=== PATIENT | male | born 1955 ===

== ENCOUNTER 2018-09-17 06:14 | Observation (INO) | payer OTHER ==
[2018-09-17 06:26] VITALS: BMI 32.5
[2018-09-17] MEDS ORDERED: Vancomycin 1.5 GM in Sodium Chloride 0.9% 500 ML IVPB STA (06:29)
--- NOTE | 2018-09-17 06:39 | ED PDOC ---
HPI: Male Pain Time Seen by Provider: 09/17/18 06:17 Chief Complaint (Nursing): Male Genitourinary Chief Complaint (Provider): Male Genitourinary History Per: Patient History/Exam Limitations: no limitations Additional Complaint(s): 63 y/o male presents to the ED complaining of male genitourinary problem. Patient reports that he has difficulty with his penile implant and states that it is malfunctioning. Denies any pain, dysuria, fever, chill, abdominal pain. Past Medical History Reviewed: Historical Data, Nursing Documentation, Vital Signs Vital Signs: Last Vital Signs Temp 97.7 F 09/17/18 06:16 Pulse 58 L 09/17/18 06:16 Resp 17 09/17/18 06:16 BP 165/93 H 09/17/18 06:16 Pulse Ox 98 09/17/18 06:16 - Medical History PMH: No Chronic Diseases - Surgical History Surgical History: No Surg Hx - Family History Family History: States: Unknown Family Hx - Allergies Allergies/Adverse Reactions: Allergies Allergy/AdvReac Type Severity Reaction Status Date / Time No Known Allergies Allergy Verified 09/17/18 06:29 Review of Systems ROS Statement: Except As Marked, All Systems Reviewed And Found Negative Constitutional: Negative for: Fever, Chills Gastrointestinal: Negative for: Abdominal Pain Genitourinary Male: Negative for: Dysuria, Penile Pain Physical Exam - Reviewed Nursing Documentation Reviewed: Yes Vital Signs Reviewed: Yes - Physical Exam Appears: Positive for: Well, Non-toxic, No Acute Distress Head Exam: Positive for: ATRAUMATIC, NORMAL INSPECTION, NORMOCEPHALIC Skin: Positive for: Normal Color, Warm, DRY Eye Exam: Positive for: EOMI, Normal appearance, PERRL ENT: Positive for: Normal ENT Inspection Neck: Positive for: Normal, Painless ROM Cardiovascular/Chest: Positive for: Regular Rate, Rhythm. Negative for: Murmur Respiratory: Positive for: Normal Breath Sounds. Negative for: Respiratory Distress Gastrointestinal/Abdominal: Positive for: Normal Exam, Soft. Negative for: Tenderness Male Genital Exam: Positive for: normal genitalia (full erection; nontender). Negative for: epididymal tenderness, inguinal tenderness, scrotum tenderness (R), scrotum tenderness (L), testicular tenderness (R), testicular tenderness (L), urethral discharge, other (discoloration) Back: Positive for: Normal Inspection Extremity: Positive for: Normal ROM. Negative for: Pedal Edema, Deformity Neurologic/Psych: Positive for: Alert, Oriented. Negative for: Motor/Sensory Deficits - ECG O2 Sat by Pulse Oximetry: 98 (RA) Pulse Ox Interpretation: Normal Medical Decision Making Medical Decision Making: Time: 06:29 A/P: 63 y/o with malfunctioning penile implant. Discussed case with Dr. Nguyễn who states implant will likely need replacement and recommends antibiotics. Patient will be admitted. * Vancomycin 1.5gm Scribe Attestation: Documented by Diony Cardenas acting as a scribe for Danial Katz MD. Provider Scribe Attestation: All medical record entries made by the Scribe were at my direction and personally dictated by me. I have reviewed the chart and agree that the record accurately reflects my personal performance of the history, physical exam, medical decision making, and the department course for this patient. I have also personally directed, reviewed, and agree with the discharge instructions and disposition. Disposition - Clinical Impression Clinical Impression: Malfunction of penile prosthesis - Patient ED Disposition Is Patient to be Admitted: Yes - Disposition Disposition Time: 06:30 Condition: FAIR Forms: [employer] (Azeri)
[2018-09-17] MEDS ORDERED: Etomidate 20 mg/10ml Inj IV ONE (10:07)
[2018-09-17] MEDS ORDERED: Sevoflurane - Inhalation Anesthetic Liq (250 ml) ONE (10:09)
[2018-09-17] MEDS ORDERED: Lidocaine 2% Inj (20ml) ONE (10:37)
[2018-09-17] MEDS ORDERED: Bupivacaine 0.5% Inj(30mL) ONE (10:37)
[2018-09-17 10:40] LABS: BASO % 0.5 % (0.0-2.0); EOS # 0.1 K/uL (0.0-0.7); EOS % 1.8 % (0.0-4.0); HEMOGLOBIN 13.9 g/dL (12.0-18.0); LYMPH # 2.4 K/uL (1.0-4.3); LYMPH % 31.5 % (20.0-40.0); MEAN CELL VOLUME 90.4 fl (80.0-94.0); MEAN CORPUSCULAR HEMOGLOBIN 30.5 pg (27.0-31.0); MEAN CORPUSCULAR HGB CONC 33.8 g/dL (33.0-37.0); MONO # 0.6 K/uL (0.0-0.8); MONO % 7.7 % (0.0-10.0); NEUT # 4.4 K/uL (1.8-7.0); NEUT % 58.5 % (50.0-75.0); NRBC % 0.3 % (0.0-0.0); RBC 4.56 Mil/uL (4.40-5.90); RED CELL DISTRIBUTION WIDTH 12.9 % (11.5-14.5); WHITE BLOOD COUNT 7.6 K/uL (4.8-10.8)
[2018-09-17] MEDS ORDERED: Gentamicin 80 mg/2mL Inj. ONE (10:40)
[2018-09-17] MEDS ORDERED: Gentamicin 80mg/50ml NS 160 MG/100 ML BAG IVPB ONE (10:40)
[2018-09-17] MEDS ORDERED: Phenylephrine 10 mg/ml Inj ONE (11:20)
[2018-09-17] MEDS ORDERED: Midazolam 2 MG/2 ML VIAL ONE (11:21)
[2018-09-17] MEDS ORDERED: Lactated Ringer's 1,000 ML IV ONE ×2 (11:25→13:30)
[2018-09-17] MEDS ORDERED: HEMOSTATIC MATRIX 10 ML DIS.NEEDLE TOP ONE (13:17)
[2018-09-17] MEDS ORDERED: HYDROmorphone 0.5 mg/0.5 ml ISec IVP PRN (14:48)
[2018-09-17] MEDS ORDERED: Lactated Ringer's 1,000 ML IV SCH (15:00)
[2018-09-17 17:14] VITALS: RESP 18
[2018-09-17 17:15] VITALS: O2SAT 98
[2018-09-17 18:37] VITALS: BP 149/78; PULSE 55; TEMP 98.2
[2018-09-17] MEDS ORDERED: Tmp-Smz 800 mg-160 mg DS Tab PO SCH (21:00)
--- NOTE | 2018-09-18 16:25 | OP ---
PROCEDURE DATE: 09/17/2018 INDICATIONS: Mr. 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 He had undergone a placement of a semirigid penile implant 17 years ago and he is concerned for infection of the device. Upon examining the patient, the patient had some corporal tenderness; however, there was no erythema or edema. His white count was normal, but given the fact that he is severe diabetic and the complaints of the pain, I was concerned for infection as well; therefore, took him emergently to the operating room for washout of this potentially infected implant. PREOPERATIVE DIAGNOSIS: Malfunctioning penile prosthesis. POSTOPERATIVE DIAGNOSIS: Malfunctioning penile prosthesis plus adhesions between scrotum and the penile shaft. PROCEDURE: Removal of infected penile prosthesis washout, replacements of inflatable penile implant, correction of penile curvature, scrotoplasty, and a Z-Y local tissue advancement flap. ESTIMATED BLOOD LOSS FOR THE PROCEDURE: 6 mL. ANESTHESIA: Spinal with sedation. SURGEON: Virgilio Nguyễn M.D. [employer]: Gavin Doll M.D. This is a contaminated case. DESCRIPTION OF PROCEDURE: The patient brought emergently to the operating room, placed in the supine position. IV's and monitoring were started. The patient was then seated. A spinal anesthetic was placed by the anesthesiologist. The patient was then laid down in the frogleg position. The patient was sedated. The patient was prepped and draped in the usual sterile fashion including a 10-min pre-scrub with chlorhexidine solution, then an alcohol-based prep. The patient was then prepped and draped in the No-Touch technique fashion whereby the skin was completely covered with iodine dressing so as to minimize any sort of contamination from the skin elie. A time-out was called, verifying the patient's name, procedure, antibiotics, and allergies; and proceeded to make a transverse scrotal incision over the penoscrotal web. The incision was carried through the tissues with the scrotum to expose the urethra and the corpora on either side of it. The corpora had stay sutures placed on both sides. Corpora was incised using electrocautery. The malleable penile prosthetic was visualized and removed from the patient. An extensive washout of the corpora was performed using approximately 6 L of normal saline more proximally and distally. Given the fact that there was no appearance of dona pus, I deemed this to be a low level of infection and decided to replace his implant. At this point, I measured the patient to be 21 cm in length and he was able to accommodate a 18 + 3 cm Ambicor inflatable penile implant. This penile implant was minimally handled after changing gloves and was placed into the corpora. Excellent sizing was obtained with the distal tip of the implant being at its very end of the glans and proximal which seated nicely into the pubic ramus. The corporotomies were then closed using a running 3-0 PDS suture. Surgiflo was placed within the corpora to aid in hemostasis. A watertight seal was created and excellent hemostasis was achieved. We then created a pocket in the dartos for the pump. The pump was placed and the tube being in pump were buried in a four-layer closure; and at this point, a test drive of the implant was performed. The penis appeared to achieve maximum rigidity with excellent size and detorsion of the penis itself. Once this was completed, we deflated the implant and then proceeded to perform a Z-Y local tissue advancement flap to gain length on the penoscrotal web in order to drop scrotum away from the penile shaft. A complex scrotoplasty was performed to release tension on this local tissue advancement flap; and once this was achieved, it was closed in multiple layers using absorbable suture and the skin was closed using a 3-0 Prolene on Geoffrey needle and an excellent cosmetic result was achieved. At this point, we placed the scrotal support on the flap. Awakened the patient from his sedation and transferred to the recovery room in good, stable condition. The patient will follow up in the office postop day 3 for Salazar catheter removal and will follow up three weeks later for suture removal. The patient was then informed to stay on a strict bedrest for the first three days, given antibiotics with discharged and was then informed to call me if there are any signs or symptoms of infection, fever or pain, swelling. Most importantly, the patient was told not to manipulate the pump or attempt to have sex with the device until he is cleared by me. Virgilio Nguyễn M.D. [facility] # [id number]
== END 2018-09-17 19:00 | disposition home or self-care (01) ==
LOC: H.ER 06:14 → H.ERHOLD 06:30
PROVIDERS: ADMIT Urology; ATTEND Urology
DX: T83.61XA Infection and inflammatory reaction due to implanted penile prosthesis, initial encounter (principal); Q55.61 Curvature of penis (lateral); Q55.8 Other specified congenital malformations of male genital organs; E11.9 Type 2 diabetes mellitus without complications; Y83.1 Surgical operation with implant of artificial internal device as the cause of abnormal reaction of the patient, or of later complication, without mention of misadventure at the time of the procedure
CPT/HCPCS: 54411; 54440; 55180; 82948; 85025; 86850; 86900; 88300; 88305; 99285; C1813; G0378; J1580; J2001; J2250; J2370; J2405; J2765; J3010; J7040; J7120